=== PATIENT | female | born 1970 | race African-American/Black ===

== ENCOUNTER 2017-05-20 04:51 | Emergency (ER) | payer MEDICAID, OTHER ==
[~2017-05-20] VITALS: Ht 154.9 cm; Wt 72.6 kg
[2017-05-20 06:32] LABS: Basophils # (auto) 0.1 uL; Basophils % (auto) 0.7 % (0.0-2.0); Eosinophils # (auto) 0.1 uL; Eosinophils % (auto) 1.1 % (0.0-7.0); Hematocrit 44.8 % (36.0-46.0); Hemoglobin 14.3 g/dL (12.2-16.2); Lymphocytes # (auto) 2.7 uL; Lymphocytes % (auto) 31.2 % (10.0-50.0); Mean Corpuscular Hemoglobin 28.5 pg (28.0-32.0); Mean Corpuscular Hgb Conc. 31.8 g/dL (32.0-36.0); Mean Corpuscular Volume 89.7 fL (80.0-100.0); Monocytes # (auto) 0.7 uL; Monocytes % (auto) 7.7 % (0.0-12.0); Neutrophils # (auto) 5.1 uL; Neutrophils % (auto) 59.3 % (37.0-80.0); Nucleated Red Blood Cells % 0.1 %; Platelet Count (auto) 273 10^3/uL (140-450); Red Blood Cells 4.99 10^6/uL (4.0-5.20); Red Cell Distribution Width 17.5 % (11.8-14.3); White Blood Cell 8.6 10^3/uL (4.4-10.8)
[2017-05-20 06:52] LABS: Albumin 2.6 g/dL (3.4-5.0); BUN/Creatinine Ratio 13.4; Bilirubin, Total 0.6 mg/dL (0.2-1.0); Calcium 8.5 mg/dL (8.5-10.1); Potassium 3.9 mmol/L (3.5-5.1); Total Protein 6.8 g/dL (6.4-8.2)
[2017-05-20] MEDS ORDERED: SODIUM CHLORIDE 0.9% 1,000 ML IV ONE (07:04)
[2017-05-20 14:34] LABS: Urine Bacteria NONE SEEN /hpf (None Seen); Urine Blood Negative /uL (Negative); Urine Mucus FEW (None Seen); Urine WBC 10 /hpf (0 - 5)
[2017-05-20 15:14] VITALS: BP 139/89
== END 2017-05-20 15:44 | disposition home or self-care (01) ==
LOC: ER 04:51
DX: O26.891 Other specified pregnancy related conditions, first trimester (principal); B82.9 Intestinal parasitism, unspecified; K59.00 Constipation, unspecified; O99.331 Smoking (tobacco) complicating pregnancy, first trimester; O25.11 Malnutrition in pregnancy, first trimester; E44.0 Moderate protein-calorie malnutrition; O99.841 Bariatric surgery status complicating pregnancy, first trimester
CPT/HCPCS: 36415; 74176; 80053; 81001; 82150; 83690; 83735; 84702; 85025; 96360

== ENCOUNTER 2017-12-03 18:37 | Inpatient (IN) | payer MEDICAID ==
[~2017-12-03] VITALS: Ht 154.9 cm; Wt 65.1 kg
[2017-12-03 20:42] LABS: Basophils # (auto) 0.1 uL; Basophils % (auto) 1.3 % (0.0-2.0); Eosinophils # (auto) 0.1 uL; Eosinophils % (auto) 1.8 % (0.0-7.0); Hematocrit 40.3 % (36.0-46.0); Hemoglobin 12.8 g/dL (12.2-16.2); Lymphocytes # (auto) 0.8 uL; Lymphocytes % (auto) 15.2 % (10.0-50.0); Mean Corpuscular Hemoglobin 28.7 pg (28.0-32.0); Mean Corpuscular Hgb Conc. 31.8 g/dL (32.0-36.0); Mean Corpuscular Volume 90.1 fL (80.0-100.0); Monocytes # (auto) 0.6 uL; Monocytes % (auto) 10.9 % (0.0-12.0); Neutrophils # (auto) 3.8 uL; Neutrophils % (auto) 70.8 % (37.0-80.0); Nucleated Red Blood Cells % 0.1 %; Platelet Count (auto) 250 10^3/uL (140-450); Red Blood Cells 4.47 10^6/uL (4.0-5.20); Red Cell Distribution Width 18.5 % (11.8-14.3); White Blood Cell 5.4 10^3/uL (4.4-10.8)
[2017-12-03 20:55] LABS: Albumin 3.5 g/dL (3.4-5.0); BUN/Creatinine Ratio 20.2; Bilirubin, Total 0.6 mg/dL (0.2-1.0); Calcium 8.4 mg/dL (8.5-10.1); Potassium 3.7 mmol/L (3.5-5.1)
[2017-12-04] MEDS ORDERED: LEVOFLOXACIN 500 MG TAB PO ONE (07:00)
[2017-12-04 07:37] LABS: Urine Bacteria NONE SEEN /hpf (None Seen); Urine Blood Negative /uL (Negative); Urine Specific Gravity 1.033 (1.001-1.035); Urine WBC 4 /hpf (0 - 5)
[2017-12-04 07:53] LABS: Alcohol, Urine < 3.0 mg/dL (0-5); Amphetamine Screen, Urine POSITIVE (NEGATIVE); Barbiturate Scree,Urine NEGATIVE (NEGATIVE); Benzodiazephine Screen, Urine NEGATIVE (NEGATIVE); Cannabinoid Screen, Urine NEGATIVE (NEGATIVE); Cocaine Screen, Urine NEGATIVE (NEGATIVE); Opiate Scree,Urine NEGATIVE (NEGATIVE); Phencyclidine Screen, Urine NEGATIVE (NEGATIVE)
[2017-12-04] MEDS ORDERED: OMEP20TA PO (08:26)
[2017-12-04] MEDS ORDERED: ACETAMINOPHEN 325 MG TAB PO PRN (09:15)
[2017-12-04] MEDS ORDERED: TEMAZEPAM 15 MG CAP PO PRN (09:15)
[2017-12-04] MEDS ORDERED: AZITHROMYCIN 500MG/ 250ML 250 ML IV ONE (09:15)
[2017-12-04] MEDS ORDERED: cefTRIAXone 1GM/10ml IVPUSH 10 ML IV ONE (09:15)
[2017-12-04] MEDS ORDERED: DOCUSATE SOD 100 MG CAP PO PRN (09:15)
[2017-12-04] MEDS ORDERED: IBUPROFEN 400 MG TAB PO PRN (09:15)
[2017-12-04] MEDS: POTASSIUM CHL 10 Meq TABLET PO SCH (10:17)
[2017-12-04] MEDS: PANTOPRAZOLE 40 MG TAB PO SCH (10:17)
[2017-12-04] MEDS: MULTIPLE VITAMIN TAB PO SCH (10:18)
[2017-12-04] MEDS: FUROSEMIDE 40 MG/4 ML VIAL IV SCH (10:18)
[2017-12-04] MEDS ORDERED: ALBUTEROL SULF 2.5 MG/0.5ML(0.5%) NEB SOLN ONE (11:25)
[2017-12-04] MEDS ORDERED: IPRATROPIUM BROM 0.5 MG/2.5ML INH SOL ONE (11:25)
[2017-12-04] MEDS: ALBUTEROL SULF 2.5 MG/0.5ML(0.5%) NEB SOLN NEB SCH ×2 (11:45→19:35)
[2017-12-04] MEDS: IPRATROPIUM BROM 0.5 MG/2.5ML INH SOL NEB SCH ×2 (11:45→19:35)
[2017-12-04] MEDS ORDERED: HYDR-4683 PO (12:38)
[2017-12-04] MEDS: diphenhdrAMINE HCL 25 MG CAP PO PRN ×2 (12:50→20:33)
[2017-12-04 13:00] VITALS: BP 125/65
[2017-12-04] MEDS: SODIUM CHLOR 0.9% PF (SALINE LOCK) 10ML VIAL/SYR IV SCH ×2 (14:01→20:55)
[2017-12-04 15:22] VITALS: BP 125/65
[2017-12-04] MEDS: HYDROcodone-ACET 5/325MG TAB PO PRN (19:42)
[2017-12-04 22:00] VITALS: BP 138/88
[2017-12-05] MEDS: IPRATROPIUM BROM 0.5 MG/2.5ML INH SOL NEB SCH ×4 (01:08→19:24)
[2017-12-05] MEDS: ALBUTEROL SULF 2.5 MG/0.5ML(0.5%) NEB SOLN NEB SCH ×4 (01:08→19:24)
[2017-12-05 05:14] VITALS: BP 135/90
[2017-12-05] MEDS: HYDROcodone-ACET 5/325MG TAB PO PRN ×2 (05:17→13:51)
[2017-12-05] MEDS: SODIUM CHLOR 0.9% PF (SALINE LOCK) 10ML VIAL/SYR IV SCH ×3 (05:18→22:00)
[2017-12-05 07:00] LABS: Basophils # (auto) 0 uL; Basophils % (auto) 0.5 % (0.0-2.0); Eosinophils # (auto) 0.2 uL; Eosinophils % (auto) 4.4 % (0.0-7.0); Hematocrit 36.4 % (36.0-46.0); Hemoglobin 11.7 g/dL (12.2-16.2); Lymphocytes # (auto) 2.1 uL; Mean Corpuscular Hemoglobin 29.1 pg (28.0-32.0); Mean Corpuscular Hgb Conc. 32.2 g/dL (32.0-36.0); Mean Corpuscular Volume 90.1 fL (80.0-100.0); Monocytes # (auto) 0.9 uL; Monocytes % (auto) 17.2 % (0.0-12.0); Neutrophils # (auto) 1.9 uL; Neutrophils % (auto) 36.9 % (37.0-80.0); Platelet Count (auto) 204 10^3/uL (140-450); Red Blood Cells 4.04 10^6/uL (4.0-5.20); Red Cell Distribution Width 18.7 % (11.8-14.3)
[2017-12-05 07:22] LABS: Albumin 2.5 g/dL (3.4-5.0); BUN/Creatinine Ratio 16.5; Bilirubin, Total 0.5 mg/dL (0.2-1.0); Calcium 7.7 mg/dL (8.5-10.1); Potassium 4.1 mmol/L (3.5-5.1); Total Protein 6.2 g/dL (6.4-8.2)
[2017-12-05 09:00] VITALS: BP 118/78
[2017-12-05] MEDS: PANTOPRAZOLE 40 MG TAB PO SCH (09:39)
[2017-12-05] MEDS: cefTRIAXone 1GM/10ml IVPUSH 10 ML IV SCH (09:39)
[2017-12-05] MEDS: MULTIPLE VITAMIN TAB PO SCH (09:39)
[2017-12-05] MEDS: POTASSIUM CHL 10 Meq TABLET PO SCH (09:39)
[2017-12-05] MEDS: FUROSEMIDE 40 MG/4 ML VIAL IV SCH (09:39)
[2017-12-05] MEDS: diphenhdrAMINE HCL 25 MG CAP PO PRN ×2 (09:39→19:21)
[2017-12-05] MEDS: AZITHROMYCIN 500MG/ 250ML 250 ML IV SCH (09:41)
[2017-12-05 12:48] VITALS: BP 134/92
[2017-12-05] MEDS: ONDANSETRON HCL 4 MG/2 ML VIAL IV PRN (13:01)
[2017-12-05 17:00] VITALS: BP 109/76
[2017-12-05] MEDS ORDERED: VANCOMYCIN PER PHARMACY 0 MG IV SCH (18:15)
[2017-12-05 20:00] VITALS: BP 130/88
[2017-12-05] MEDS: VANCOMYCIN 1GM/250ML 250 ML IV SCH (21:57)
[2017-12-05 22:00] VITALS: BP 130/88
[2017-12-06] VITALS (8 sets, daily range): BP systolic 119–130; BP diastolic 62–85
[2017-12-06] MEDS: IPRATROPIUM BROM 0.5 MG/2.5ML INH SOL NEB SCH ×4 (00:24→18:56)
[2017-12-06] MEDS: ALBUTEROL SULF 2.5 MG/0.5ML(0.5%) NEB SOLN NEB SCH ×4 (00:25→18:56)
[2017-12-06] MEDS: HYDROcodone-ACET 5/325MG TAB PO PRN ×2 (03:44→10:40)
[2017-12-06] MEDS: diphenhdrAMINE HCL 25 MG CAP PO PRN (04:50)
[2017-12-06] MEDS: SODIUM CHLOR 0.9% PF (SALINE LOCK) 10ML VIAL/SYR IV SCH ×3 (04:55→21:54)
[2017-12-06 07:08] LABS: Basophils # (auto) 0 uL; Basophils % (auto) 0.9 % (0.0-2.0); Eosinophils # (auto) 0.3 uL; Eosinophils % (auto) 6.2 % (0.0-7.0); Hematocrit 37.1 % (36.0-46.0); Hemoglobin 11.7 g/dL (12.2-16.2); Lymphocytes # (auto) 1.7 uL; Lymphocytes % (auto) 31.6 % (10.0-50.0); Mean Corpuscular Hemoglobin 28.5 pg (28.0-32.0); Mean Corpuscular Hgb Conc. 31.6 g/dL (32.0-36.0); Monocytes # (auto) 0.8 uL; Monocytes % (auto) 15.4 % (0.0-12.0); Neutrophils # (auto) 2.5 uL; Neutrophils % (auto) 45.9 % (37.0-80.0); Nucleated Red Blood Cells % 0.1 %; Platelet Count (auto) 215 10^3/uL (140-450); Red Blood Cells 4.12 10^6/uL (4.0-5.20); Red Cell Distribution Width 18.6 % (11.8-14.3); White Blood Cell 5.5 10^3/uL (4.4-10.8)
[2017-12-06 07:39] LABS: BUN/Creatinine Ratio 22.8; Potassium 4.6 mmol/L (3.5-5.1)
[2017-12-06] MEDS: VANCOMYCIN 1GM/250ML 250 ML IV SCH (08:15)
[2017-12-06] MEDS: cefTRIAXone 1GM/10ml IVPUSH 10 ML IV SCH (09:52)
[2017-12-06] MEDS: FUROSEMIDE 40 MG/4 ML VIAL IV SCH (09:52)
[2017-12-06] MEDS: POTASSIUM CHL 10 Meq TABLET PO SCH (09:52)
[2017-12-06] MEDS: PANTOPRAZOLE 40 MG TAB PO SCH (09:52)
[2017-12-06] MEDS: AZITHROMYCIN 500MG/ 250ML 250 ML IV SCH (09:53)
[2017-12-06] MEDS: MULTIPLE VITAMIN TAB PO SCH (09:53)
[2017-12-06] MEDS: ONDANSETRON HCL 4 MG/2 ML VIAL IV PRN (19:48)
[2017-12-07] MEDS: ALBUTEROL SULF 2.5 MG/0.5ML(0.5%) NEB SOLN NEB SCH ×4 (00:44→18:24)
[2017-12-07] MEDS: IPRATROPIUM BROM 0.5 MG/2.5ML INH SOL NEB SCH ×4 (00:44→18:24)
[2017-12-07] MEDS: SODIUM CHLOR 0.9% PF (SALINE LOCK) 10ML VIAL/SYR IV SCH ×2 (06:00→13:02)
[2017-12-07 07:04] LABS: Calcium 8.1 mg/dL (8.5-10.1); Potassium 4.5 mmol/L (3.5-5.1)
[2017-12-07 08:00] VITALS: BP 131/84
[2017-12-07 09:00] VITALS: BP 131/84
[2017-12-07] MEDS: AZITHROMYCIN 500MG/ 250ML 250 ML IV SCH (10:24)
[2017-12-07] MEDS: cefTRIAXone 1GM/10ml IVPUSH 10 ML IV SCH (10:24)
[2017-12-07] MEDS: MULTIPLE VITAMIN TAB PO SCH (10:25)
[2017-12-07] MEDS: FUROSEMIDE 40 MG/4 ML VIAL IV SCH (10:25)
[2017-12-07] MEDS: PANTOPRAZOLE 40 MG TAB PO SCH (10:25)
[2017-12-07] MEDS: POTASSIUM CHL 10 Meq TABLET PO SCH (10:25)
[2017-12-07] MEDS: HYDROcodone-ACET 5/325MG TAB PO PRN ×2 (12:56→20:55)
[2017-12-07 13:00] VITALS: BP 133/86
[2017-12-07] MEDS: ONDANSETRON HCL 4 MG/2 ML VIAL IV PRN (14:05)
[2017-12-07] MEDS: diphenhdrAMINE HCL 25 MG CAP PO PRN (14:09)
[2017-12-07 17:00] VITALS: BP 127/80
[2017-12-07 22:00] VITALS: BP 133/92
[2017-12-08] MEDS: SODIUM CHLOR 0.9% PF (SALINE LOCK) 10ML VIAL/SYR IV SCH ×3 (00:12→13:41)
[2017-12-08] MEDS: ALBUTEROL SULF 2.5 MG/0.5ML(0.5%) NEB SOLN NEB SCH ×3 (00:27→11:47)
[2017-12-08] MEDS: IPRATROPIUM BROM 0.5 MG/2.5ML INH SOL NEB SCH ×3 (00:27→11:47)
[2017-12-08 05:00] VITALS: BP 138/87
[2017-12-08 09:00] VITALS: BP 139/88
[2017-12-08] MEDS: AZITHROMYCIN 500MG/ 250ML 250 ML IV SCH (10:05)
[2017-12-08] MEDS: cefTRIAXone 1GM/10ml IVPUSH 10 ML IV SCH (10:05)
[2017-12-08] MEDS: POTASSIUM CHL 10 Meq TABLET PO SCH (10:06)
[2017-12-08] MEDS: FUROSEMIDE 40 MG/4 ML VIAL IV SCH (10:06)
[2017-12-08] MEDS: MULTIPLE VITAMIN TAB PO SCH (10:06)
[2017-12-08] MEDS: PANTOPRAZOLE 40 MG TAB PO SCH (10:06)
[2017-12-08 11:27] VITALS: BP 139/88
[2017-12-08 13:00] VITALS: BP 128/80
== END 2017-12-08 14:45 | disposition home or self-care (01) | DRG 139 ==
LOC: ER 18:37 → OVERFLOW 18:38 → CENTRAL 12-04 12:00
PROVIDERS: ADMIT Internal Medicine; ATTEND Internal Medicine
DX: J18.9 Pneumonia, unspecified organism (principal); I50.43 Acute on chronic combined systolic (congestive) and diastolic (congestive) heart failure; E44.0 Moderate protein-calorie malnutrition; E83.51 Hypocalcemia; J45.901 Unspecified asthma with (acute) exacerbation; I42.9 Cardiomyopathy, unspecified; R06.03 Acute respiratory distress; D64.9 Anemia, unspecified; F19.10 Other psychoactive substance abuse, uncomplicated; F15.10 Other stimulant abuse, uncomplicated; F17.210 Nicotine dependence, cigarettes, uncomplicated; N18.2 Chronic kidney disease, stage 2 (mild); Z82.49 Family history of ischemic heart disease and other diseases of the circulatory system; Z98.84 Bariatric surgery status; Z98.51 Tubal ligation status; Z68.27 Body mass index [BMI] 27.0-27.9, adult
CPT/HCPCS: 36415; 36600; 71046; 80048; 80053; 80307; 81001; 82805; 83880; 85025; 87040; 87077; 87186; 93005; 94640; 96365; 96375; J0696; J2405

== ENCOUNTER 2019-01-03 17:20 | Emergency (ER) | payer MEDICAID ==
[~2019-01-03] VITALS: Ht 154.9 cm; Wt 63.5 kg
[~2019-01-03 17:20] MED LIST: HYDR-4833 PO; OMEP20TA PO
[2019-01-03] MEDS ORDERED: TETRACAINE HCL 0.5% OPTH(EYE) SOLN 4ML EACHEYE ONE (20:15)
[2019-01-03] MEDS ORDERED: DexAMETHasone SOD PHOS 10MG/1ML VIAL INJ IM ONE (20:15)
[2019-01-03] MEDS ORDERED: cefTRIAXone SOD 1,000 MG VL IM ONE (20:15)
[2019-01-03] MEDS ORDERED: FLUORESCEIN SOD 1 MG TEST STRIP EACHEYE ONE (20:15)
[2019-01-03 21:43] VITALS: BP 128/87
== END 2019-01-03 21:48 | disposition home or self-care (01) ==
LOC: ER 17:20
DX: H10.11 Acute atopic conjunctivitis, right eye (principal); J44.9 Chronic obstructive pulmonary disease, unspecified; E78.5 Hyperlipidemia, unspecified; I11.0 Hypertensive heart disease with heart failure; I50.9 Heart failure, unspecified; F17.210 Nicotine dependence, cigarettes, uncomplicated; F12.90 Cannabis use, unspecified, uncomplicated; F15.90 Other stimulant use, unspecified, uncomplicated; Z79.899 Other long term (current) drug therapy; Z98.51 Tubal ligation status
CPT/HCPCS: 96372; 99283; J0696; J1100

== ENCOUNTER 2020-03-09 22:25 | Emergency (ER) | payer MEDICAID ==
[~2020-03-09] VITALS: Ht 167.6 cm; Wt 86.2 kg
[2020-03-10 00:41] LABS: Basophils # (auto) 0 10 ^3/uL (0-0.2); Basophils % (auto) 0.3 % (0.0-2.0); Eosinophils # (auto) 0 10 ^3/uL (0-0.8); Hematocrit 45.9 % (36.0-46.0); Hemoglobin 13.9 g/dL (12.2-16.2); Lymphocytes # (auto) 0.4 10 ^3/uL (0.4-5.4); Lymphocytes % (auto) 9.7 % (10.0-50.0); Mean Corpuscular Hemoglobin 24.3 pg (28.0-32.0); Mean Corpuscular Hgb Conc. 30.3 g/dL (32.0-36.0); Mean Corpuscular Volume 80.4 fL (80.0-100.0); Monocytes # (auto) 0.3 10 ^3/uL (0-1.3); Monocytes % (auto) 6.1 % (0.0-12.0); Neutrophils # (auto) 3.7 10 ^3/uL (1.6-8.6); Neutrophils % (auto) 83.9 % (37.0-80.0); Nucleated Red Blood Cells % 0.4 %; Platelet Count (auto) 393 10^3/uL (140-450); Red Blood Cells 5.71 10^6/uL (4.0-5.20); White Blood Cell 4.4 10^3/uL (4.4-10.8)
[2020-03-10 00:42] LABS: Red Cell Distribution Width 23.7 % (11.8-14.3)
[2020-03-10 01:00] LABS: Albumin 2.6 g/dL (3.4-5.0); BUN/Creatinine Ratio 18.2; Calcium 8.3 mg/dL (8.5-10.1); Magnesium 2.1 mg/dL (1.6-2.6); Potassium 4.3 mmol/L (3.5-5.1)
[2020-03-10 01:05] LABS: Total Protein 7.6 g/dL (6.4-8.2)
[2020-03-10] MEDS ORDERED: ONDANSETRON HCL 4 MG/2 ML VIAL ONE (03:28)
[2020-03-10] MEDS ORDERED: MORPHINE SULFATE 4 MG/ML SYR/VIAL ONE (03:28)
[2020-03-10] MEDS ORDERED: metroNIDAZOLE 500MG/100ML 100 ML IV ONE ×2 (03:50→04:30)
[2020-03-10] MEDS ORDERED: PIPERACILLIN-TAZOB 3.375GM 100 ML IV ONE ×2 (03:50→04:30)
[2020-03-10] MEDS ORDERED: ONDANSETRON HCL 4 MG/2 ML VIAL IV ONE ×3 (04:30→14:15)
[2020-03-10] MEDS ORDERED: MORPHINE SULFATE 4 MG/ML SYR/VIAL IV ONE ×3 (04:30→14:15)
[2020-03-10] MEDS ORDERED: SODIUM CHLORIDE 0.9% 1,000 ML IV ONE ×2 (08:45)
[2020-03-10] MEDS ORDERED: diphenhdrAMINE HCL 50 MG/1 ML VL ONE (09:21)
[2020-03-10] MEDS: diphenhdrAMINE HCL 50 MG/1 ML VL IV PRN ×3 (11:20→20:17)
--- NOTE | 2020-03-10 11:27 | NUR ---
1125 03/10/20 - Contacted by [facility] correctional case records supervisor Valeri who provided the following authorizations for facility ([facility] [place]) [id number] and for transportation [facility] [id number] informed ED nurse of the above information.
[2020-03-10] MEDS ORDERED: MORPHINE SULFATE 4 MG/ML SYR/VIAL IV PRN (17:00)
[2020-03-10] MEDS ORDERED: ONDANSETRON HCL 4 MG/2 ML VIAL IV PRN (17:00)
[2020-03-10] MEDS: SODIUM CHLORIDE 0.9% 1,000 ML IV SCH ×2 (18:00→20:17)
[2020-03-10 22:27] VITALS: BP 97/63
== END 2020-03-10 22:56 | disposition short-term general hospital (02) ==
LOC: EDBD 22:25 → ER 22:28
DX: K63.1 Perforation of intestine (nontraumatic) (principal); I11.0 Hypertensive heart disease with heart failure; I50.9 Heart failure, unspecified; E78.5 Hyperlipidemia, unspecified; F17.210 Nicotine dependence, cigarettes, uncomplicated; F12.10 Cannabis abuse, uncomplicated; F15.10 Other stimulant abuse, uncomplicated; Z98.51 Tubal ligation status; Z98.84 Bariatric surgery status
CPT/HCPCS: 36415; 74176; 80053; 82150; 83690; 83735; 84484; 85025; 87804; 93005; 96365; 96366; 96368; 96375; 96376; 99285; J7030; 96361

== ENCOUNTER 2020-12-08 22:45 | Emergency (ER) | payer MEDICAID ==
[~2020-12-08] VITALS: Ht 167.6 cm; Wt 63.5 kg
[2020-12-08] MEDS ORDERED: diazePAM 2 MG TAB PO ONE (23:15)
[2020-12-08] MEDS ORDERED: ONDANSETRON HCL 4 MG/2 ML VIAL IV ONE (23:15)
[2020-12-08 23:32] LABS: Eosinophils # (auto) 0.1 10 ^3/uL (0-0.8); Mean Corpuscular Volume 74.7 fL (80.0-100.0); Monocytes # (auto) 0.9 10 ^3/uL (0-1.3); Nucleated Red Blood Cells % 0.2 %
[2020-12-08 23:35] LABS: Basophils # (auto) 0 10 ^3/uL (0-0.2); Basophils % (auto) 0.7 % (0.0-2.0); Eosinophils % (auto) 1.4 % (0.0-7.0); Hematocrit 38.3 % (36.0-46.0); Hemoglobin 12.2 g/dL (12.2-16.2); Lymphocytes # (auto) 1.6 10 ^3/uL (0.4-5.4); Lymphocytes % (auto) 21.6 % (10.0-50.0); Mean Corpuscular Hemoglobin 23.8 pg (28.0-32.0); Mean Corpuscular Hgb Conc. 31.8 g/dL (32.0-36.0); Monocytes % (auto) 12.3 % (0.0-12.0); Neutrophils # (auto) 4.6 10 ^3/uL (1.6-8.6); Red Blood Cells 5.13 10^6/uL (4.0-5.20); White Blood Cell 7.2 10^3/uL (4.4-10.8)
[2020-12-08 23:40] LABS: Red Cell Distribution Width 23.4 % (11.8-14.3)
[2020-12-08 23:46] LABS: INR 1.08 (0.9-1.15)
[2020-12-08 23:49] LABS: Potassium 4.1 mmol/L (3.5-5.1)
[2020-12-08 23:53] LABS: Albumin 2.3 g/dL (3.4-5.0); BUN/Creatinine Ratio 20.3; Calcium 8.5 mg/dL (8.5-10.1); Magnesium 2.1 mg/dL (1.6-2.6)
[2020-12-08 23:59] LABS: Bilirubin, Total 0.4 mg/dL (0.2-1.0); Total Protein 7.8 g/dL (6.4-8.2)
[2020-12-09] MEDS ORDERED: LIDOCAINE VISCOUS 2% 15ML UD PO ONE (00:30)
[2020-12-09] MEDS ORDERED: ALUM & MAG HYDROX-SIMETH LIQ(MAALOX) 30 ML PO ONE (00:30)
[2020-12-09 02:52] LABS: Urine Bacteria NONE SEEN /hpf (None Seen); Urine Blood Negative /uL (Negative); Urine Mucus FEW (None Seen); Urine WBC 7 /hpf (0 - 5)
[2020-12-09 02:53] LABS: Urine Specific Gravity > 1.050 (1.001-1.035)
[2020-12-09] MEDS ORDERED: diphenhdrAMINE HCL 25 MG CAP PO ONE (03:15)
[2020-12-09 03:35] VITALS: BP 145/73
== END 2020-12-09 03:35 | disposition home or self-care (01) ==
LOC: EDBD 22:45 → ER 22:45
DX: R10.9 Unspecified abdominal pain (principal); M62.838 Other muscle spasm; F17.210 Nicotine dependence, cigarettes, uncomplicated; F12.10 Cannabis abuse, uncomplicated; F15.10 Other stimulant abuse, uncomplicated; I11.0 Hypertensive heart disease with heart failure; I50.9 Heart failure, unspecified; E78.5 Hyperlipidemia, unspecified; J44.9 Chronic obstructive pulmonary disease, unspecified; Z98.51 Tubal ligation status; Z95.0 Presence of cardiac pacemaker
CPT/HCPCS: 36415; 71045; 74177; 80053; 81001; 82150; 83690; 83735; 84484; 85025; 85610; 85730; 93005; 96374; 99285; J2405